=== PATIENT | male | born 1955 | race Caucasian/White ===

== ENCOUNTER 2020-10-19 23:57 | Inpatient (IN) | payer OTHER, MEDICARE ==
--- NOTE | 2020-10-20 00:33 | EDM.PDOC ---
ED HPI GENERAL MEDICAL PROBLEM - General Chief Complaint: Respiratory Problem Stated Complaint: COVID? Time Seen by Provider: 10/20/20 00:50 Source of Information: Reports: Patient, Family History Limitations: Reports: No Limitations - History of Present Illness INITIAL COMMENTS - FREE TEXT/NARRATIVE: 65-year-old male who has had symptoms of Covid for the past week and a half, seen in the clinic last week and a Covid test was obtained and he was started on dexamethasone. He feels he is getting worse, some increased difficulty breathing and worsening weakness. He can barely get up and down the stairs at home. When he arrived to the emergency room after ambulating to the exam room his O2 sats were 87%. He has had nausea, diarrhea, lost his taste of sense and smell. The Covid test that they obtained in the clinic apparently has been misplaced or lost. Onset: Gradual Duration: Day(s): (Symptoms for 10 days or more) Location: Reports: Other (Weakness is generalized) Associated Symptoms: Reports: Cough, Fever/Chills, Malaise, Nausea/Vomiting, Shortness of Breath, Weakness - Related Data Allergies Allergy/AdvReac Type Severity Reaction Status Date / Time Iodinated Contrast Media Allergy Severe Paralysis Verified 10/20/20 00:37 [Iodinated Contrast- Oral and IV Dye] codeine Allergy Itching Verified 10/20/20 00:37 morphine Allergy Other Verified 10/20/20 00:37 oxycodone Allergy Other Verified 10/20/20 00:37 simvastatin Allergy Itching Verified 10/20/20 00:37 Home Meds: Home Meds Aspirin [Jaja Chewable Aspirin] 81 mg PO DAILY 03/10/15 [History] Cyclobenzaprine HCl 10 mg PO TID PRN 03/10/15 [History] Gabapentin [Neurontin] 300 mg PO TID 03/10/15 [History] Loratadine 10 mg PO DAILY PRN 03/10/15 [History] Multivitamin [Multiple Vitamins] 1 tab PO BID 03/10/15 [History] atorvaSTATin Calcium [Atorvastatin Calcium] 20 mg PO DAILY 03/10/15 [History] rOPINIRole [Requip] 1 mg PO BEDTIME 03/10/15 [History] Naproxen 500 mg PO TID 06/19/17 [History] atenoloL [Atenolol] 50 mg PO DAILY 10/20/20 [History] dexAMETHasone [Dexamethasone] 1.5 tab PO DAILY 10/20/20 [History] Past Medical History HEENT History: Reports: Impaired Vision Psychiatric History: Reports: Depression - Infectious Disease History Infectious Disease History: Reports: Chicken Pox - Past Surgical History GI Surgical History: Reports: Colonoscopy Musculoskeletal Surgical History: Reports: Other (See Below) Other Musculoskeletal Surgeries/Procedures:: 4 spacers in loere spine.- Social & Family History - Family History Family Medical History: No Pertinent Family History - Tobacco Use Tobacco Use Status *Q: Never Tobacco User - Caffeine Use Caffeine Use: Reports: Coffee - Recreational Drug Use Recreational Drug Use: No ED ROS GENERAL - Review of Systems Review Of Systems: See Below Constitutional: Reports: Fever, Chills, Malaise, Decreased Appetite HEENT: Denies: Throat Pain Respiratory: Reports: Shortness of Breath, Cough. Denies: Sputum Cardiovascular: Denies: Chest Pain GI/Abdominal: Reports: Diarrhea, Nausea, Vomiting. Denies: Abdominal Pain : Reports: No Symptoms Musculoskeletal: Reports: Other (Generalized aching and muscle pain) Skin: Reports: No Symptoms Neurological: Reports: Dizziness, Headache, Difficulty Walking, Weakness Psychiatric: Reports: No Symptoms ED EXAM, GENERAL - Physical Exam Exam: See Below Exam Limited By: No Limitations General Appearance: Alert, No Apparent Distress, Other (Looks extremely tired) Eye Exam: Bilateral Eye: Normal Inspection Head: Atraumatic Neck: Supple, Non-Tender Respiratory/Chest: Rales (Bibasilar rales are heard) Cardiovascular: Regular Rate, Rhythm, Tachycardia GI/Abdominal: Soft, Non-Tender Extremities: No: Pedal Edema, Joint Swelling Neurological: Alert, Oriented, Other (No asymmetric weakness, but overall very weak) Psychiatric: Flat Affect Skin Exam: Warm, Dry Course - Vital Signs Last Recorded V/S: Last Vital Signs Temp 100.3 F 10/20/20 03:56 Pulse 94 10/20/20 03:56 Resp 18 10/20/20 03:56 BP 131/72 10/20/20 03:56 Pulse Ox 96 10/20/20 03:58 - Orders/Labs/Meds Orders: Active Orders 24 hr Category Date Time Status Chest 2V [CR] Routine Exams 10/20/20 00:55 Taken Medication Orders Acetaminophen (Tylenol) 650 mg PO Q4H PRN PRN Reason: Pain (Mild 1-3)/fever Aspirin (Aspirin) 81 mg PO DAILY [facility] Atorvastatin Calcium (Lipitor) 20 mg PO DAILY [facility] Benzonatate (Tessalon Perles) 100 mg PO TID PRN PRN Reason: Cough Cyclobenzaprine HCl (Flexeril) 10 mg PO TID PRN PRN Reason: Muscle Spasm Dexamethasone (Dexamethasone) 6 mg PO DAILY [facility] Enoxaparin Sodium (Lovenox) 40 mg SUBCUT DAILY [facility] Gabapentin (Neurontin) 300 mg PO TID [facility] Guaifenesin/Dextromethorphan (Robitussin Dm) 10 ml PO Q4H PRN PRN Reason: Cough Remdesivir 100 mg/ Sodium (Chloride) 100 mls @ 100 mls/hr IV Q24H [facility] Stop: 10/24/20 04:59 Loperamide HCl (Imodium) 2 mg PO Q4H PRN PRN Reason: Diarrhea Lorazepam (Ativan) 0.5 mg IVPUSH Q4H PRN PRN Reason: Nausea/Vomiting Melatonin (Melatonin) 9 mg PO BEDTIME PRN PRN Reason: Sleep Non-Formulary Medication (Atenolol [Atenolol]) 50 mg PO DAILY [facility] Ondansetron HCl (Zofran) 4 mg IV Q6H PRN PRN Reason: Nausea/Vomiting Ondansetron HCl (Zofran Odt) 4 mg PO Q6H PRN PRN Reason: Nausea able to take PO Ropinirole HCl (Requip) 1 mg PO BEDTIME [facility] Senna/Docusate Sodium (Senna Plus) 1 tab PO BID PRN PRN Reason: Constipation Labs: Laboratory Tests 10/20/20 10/20/20 10/20/20 Range/Units 01:20 01:20 01:20 WBC 12.9 H (4.5-11.0) K/uL RBC 5.02 (4.30-5.90) M/uL Hgb 13.9 (12.0-15.0) g/dL Hct 43.9 (40.0-54.0) % MCV 88 (80-98) fL MCH 28 (27-31) pg MCHC 32 (32-36) % Plt Count 230 (150-400) K/uL Neut % (Auto) 92 H (36-66) % Lymph % (Auto) 4 L (24-44) % Stokes % (Auto) 4 (2-6) % Eos % (Auto) 0 L (2-4) % Baso % (Auto) 0 (0-1) % D-Dimer, Quantitative 902.76 H (0.0-500.0) ng/mL Sodium 137 L (140-148) mmol/L Potassium 3.8 (3.6-5.2) mmol/L Chloride 100 (100-108) mmol/L Carbon Dioxide 25 (21-32) mmol/L Anion Gap 15.8 H (5.0-14.0) mmol/L BUN 27 H (7-18) mg/dL Creatinine 1.6 H (0.8-1.3) mg/dL Est Cr Clr Drug Dosing 55.76 mL/min Estimated GFR (MDRD) 43 L (>60) Glucose 138 H (74-106) mg/dL Calcium 9.0 (8.5-10.1) mg/dL Ferritin (8-388) ng/ml Total Bilirubin 0.4 (0.2-1.0) mg/dL AST 26 (15-37) U/L ALT 25 (12-78) U/L Alkaline Phosphatase 71 (46-116) U/L C-Reactive Protein (0.0-0.3) mg/dL Total Protein 7.1 (6.4-8.2) g/dL Albumin 3.0 L (3.4-5.0) g/dL Globulin 4.1 H (2.3-3.5) g/dL Albumin/Globulin Ratio 0.7 L (1.2-2.2) SARS-CoV-2 RNA (PRETTY) (NEGATIVE) 10/20/20 10/20/20 Range/Units 01:20 01:21 WBC (4.5-11.0) K/uL RBC (4.30-5.90) M/uL Hgb (12.0-15.0) g/dL Hct (40.0-54.0) % MCV (80-98) fL MCH (27-31) pg MCHC (32-36) % Plt Count (150-400) K/uL Neut % (Auto) (36-66) % Lymph % (Auto) (24-44) % Stokes % (Auto) (2-6) % Eos % (Auto) (2-4) % Baso % (Auto) (0-1) % D-Dimer, Quantitative (0.0-500.0) ng/mL Sodium (140-148) mmol/L Potassium (3.6-5.2) mmol/L Chloride (100-108) mmol/L Carbon Dioxide (21-32) mmol/L Anion Gap (5.0-14.0) mmol/L BUN (7-18) mg/dL Creatinine (0.8-1.3) mg/dL Est Cr Clr Drug Dosing mL/min Estimated GFR (MDRD) (>60) Glucose (74-106) mg/dL Calcium (8.5-10.1) mg/dL Ferritin 373 (8-388) ng/ml Total Bilirubin (0.2-1.0) mg/dL AST (15-37) U/L ALT (12-78) U/L Alkaline Phosphatase (46-116) U/L C-Reactive Protein 10.87 H (0.0-0.3) mg/dL Total Protein (6.4-8.2) g/dL Albumin (3.4-5.0) g/dL Globulin (2.3-3.5) g/dL Albumin/Globulin Ratio (1.2-2.2) SARS-CoV-2 RNA (PRETTY) Positive H (NEGATIVE) Meds: Medications Generic Name Dose Route Start Last Admin Trade Name Freq PRN Reason Stop Dose Admin Acetaminophen 650 mg 10/20/20 03:35 Tylenol PO Q4H PRN Pain (Mild 1-3)/fever Aspirin 81 mg 10/20/20 09:00 Aspirin PO DAILY [facility] Atorvastatin Calcium 20 mg 10/20/20 09:00 Lipitor PO DAILY [facility] Benzonatate 100 mg 10/20/20 03:35 Tessalon Perles PO TID PRN Cough Cyclobenzaprine HCl 10 mg 10/20/20 03:35 Flexeril PO TID PRN Muscle Spasm Dexamethasone 6 mg 10/20/20 09:00 Dexamethasone PO DAILY [facility] Enoxaparin Sodium 40 mg 10/20/20 09:00 Lovenox SUBCUT DAILY [facility] Gabapentin 300 mg 10/20/20 09:00 Neurontin PO TID [facility] Guaifenesin/Dextromethorphan 10 ml 10/20/20 03:35 Robitussin Dm PO Q4H PRN Cough Remdesivir 100 mg/ Sodium 100 mls @ 100 mls/hr 10/21/20 04:00 Chloride IV 10/24/20 04:59 Q24H [facility] Loperamide HCl 2 mg 10/20/20 03:35 Imodium PO Q4H PRN Diarrhea Lorazepam 0.5 mg 10/20/20 03:35 Ativan IVPUSH Q4H PRN Nausea/Vomiting Melatonin 9 mg 10/20/20 03:35 Melatonin PO BEDTIME PRN Sleep Non-Formulary Medication 50 mg 10/20/20 09:00 Atenolol [Atenolol] PO DAILY [facility] Ondansetron HCl 4 mg 10/20/20 03:35 Zofran IV Q6H PRN Nausea/Vomiting Ondansetron HCl 4 mg 10/20/20 03:35 Zofran Odt PO Q6H PRN Nausea able to take PO Ropinirole HCl 1 mg 10/20/20 21:00 Requip PO BEDTIME [facility] Senna/Docusate Sodium 1 tab 10/20/20 03:35 Senna Plus PO BID PRN Constipation Discontinued Medications Generic Name Dose Route Start Last Admin Trade Name Freq PRN Reason Stop Dose Admin Remdesivir 200 mg/ Sodium 250 mls @ 250 mls/hr 10/20/20 02:11 10/20/20 02:37 Chloride IV 10/20/20 02:12 250 mls/hr ONETIME ONE Administration - Re-Assessments/Exams Free Text/Narrative Re-Assessment/Exam: 10/20/20 01:19 2 L of nasal cannula O2 were applied because of his hypoxia. A two-view chest x-ray was obtained as well as a CBC, CMP, ferritin, D-dimer and CRP. A rapid Covid test was obtained. There is a fairly good chance this patient will need admission. 10/20/20 02:36 White count is just over 12,000, CRP is over 10 and Covid test is positive. Patient will be given 200 mg of IV remdesivir, Dr. Schuyler Crow was called and he instructed us to call the hospitalist service. Dr. Garcia was kind enough to accept the patient and will come in for admission. Departure - Departure Time of Disposition: 03:33 Disposition: Admitted As Inpatient 65 Clinical Impression: Pneumonia due to 2019 novel coronavirus - Discharge Information Sepsis Event Note (ED) - Evaluation Sepsis Screening Result: Possible Sepsis Risk - Focused Exam Vital Signs: Vital Signs Temp Pulse Resp BP Pulse Ox 10/20/20 00:15 99.5 F 107 H 26 H 123/71 92 L - My Orders Last 24 Hours: My Active Orders 10/20/20 00:55 Chest 2V [CR] Routine - Assessment/Plan Last 24 Hours: My Active Orders 10/20/20 00:55 Chest 2V [CR] Routine
[2020-10-20] MEDS ORDERED: REMDESIVIR 200 MG in Sodium Chloride 0.9% 250 ML IV ONE (02:11)
--- NOTE | 2020-10-20 03:16 | PCM.HP.2 ---
H&P History of Present Illness - General Date of Service: 10/20/20 Admit Problem/Dx: Admission Diagnosis/Problem Admission Diagnosis/Problem Pneumonia Source of Information: Patient, Provider History Limitations: Reports: No Limitations - History of Present Illness Initial Comments - Free Text/Narative: CC: I've been getting worse HPI: Abhinav presents to the emergency room tonight with progressive symptoms of cough, shortness of breath, weakness, fatigue and diarrhea. Today is day 9 of symptoms related to COVID-19 infection. He has lost his taste and smell. He has had nausea but no vomiting as well as fairly consistent watery diarrhea. He has some mild generalized abdominal pain which is crampy in nature. He has had progressive shortness of breath especially over the last few days. He is now short of breath after walking only 10 feet or so. He has a dry and nonproductive cough. Subjective fevers and chills. No appetite or energy. He was seen in the clinic 3 days ago and started on dexamethasone. He has continued to get worse despite the anti-inflammatory. His is also sick but got sick several days after he did. Work-up in the emergency room revealed acute respiratory failure with hypoxia. Laboratory studies revealed mild leukocytosis and moderate elevation of D-dimer and CRP. Chest x-ray had some mild right-sided infiltrates all consistent with Covid infection. The patient is hypoxic and has been started on the remdesivir in addition to his steroids. He is going to be admitted to the Covid unit for further management. - Related Data Allergies/Adverse Reactions: Allergies Allergy/AdvReac Type Severity Reaction Status Date / Time Iodinated Contrast Media Allergy Severe Paralysis Verified 10/20/20 00:37 [Iodinated Contrast- Oral and IV Dye] codeine Allergy Itching Verified 10/20/20 00:37 morphine Allergy Other Verified 10/20/20 00:37 oxycodone Allergy Other Verified 10/20/20 00:37 simvastatin Allergy Itching Verified 10/20/20 00:37 Home Medications: Home Meds Aspirin [Jaja Chewable Aspirin] 81 mg PO DAILY 03/10/15 [History] Cyclobenzaprine HCl 10 mg PO TID PRN 03/10/15 [History] Gabapentin [Neurontin] 300 mg PO TID 03/10/15 [History] Loratadine 10 mg PO DAILY PRN 03/10/15 [History] Multivitamin [Multiple Vitamins] 1 tab PO BID 03/10/15 [History] atorvaSTATin Calcium [Atorvastatin Calcium] 20 mg PO DAILY 03/10/15 [History] rOPINIRole [Requip] 1 mg PO BEDTIME 03/10/15 [History] Naproxen 500 mg PO TID 06/19/17 [History] atenoloL [Atenolol] 50 mg PO DAILY 10/20/20 [History] dexAMETHasone [Dexamethasone] 1.5 tab PO DAILY 10/20/20 [History] Past Medical History HEENT History: Reports: Impaired Vision Psychiatric History: Reports: Depression - Infectious Disease History Infectious Disease History: Reports: Chicken Pox - Past Surgical History GI Surgical History: Reports: Colonoscopy Musculoskeletal Surgical History: Reports: Other (See Below) Other Musculoskeletal Surgeries/Procedures:: 4 spacers in loere spine.- Social & Family History - Family History Family Medical History: No Pertinent Family History - Tobacco Use Tobacco Use Status *Q: Never Tobacco User - Caffeine Use Caffeine Use: Reports: Coffee - Recreational Drug Use Recreational Drug Use: No H&P Review of Systems - Review of Systems: Review Of Systems: See Below Free Text/Narrative: A complete 12 point review of systems was obtained. Pertinent positives and negatives are noted in the history of present illness. All other systems were reviewed and were negative except as noted. Exam - Exam Exam: See Below - Vital Signs Vital Signs: Last Vital Signs Temp 37.5 C 10/20/20 00:15 Pulse 107 H 10/20/20 00:15 Resp 26 H 10/20/20 00:15 BP 123/71 10/20/20 00:15 Pulse Ox 92 L 10/20/20 00:15 Weight: 110.2 kg - Exam Quality Assessment: Supplemental Oxygen General: Alert, Oriented, Cooperative, Mild Distress HEENT: Conjunctiva Clear. No: Mucosa Moist & [place] (dry), Scleral Icterus Neck: Supple, Trachea Midline Lungs: Normal Respiratory Effort, Crackles (Rare right lung base). No: Wheezing Cardiovascular: Regular Rate, Regular Rhythm GI/Abdominal Exam: Normal Bowel Sounds, Soft, No Distention, Tender (Mild epigastric and left-sided) Extremities: No Pedal Edema. No: Increased Warmth Peripheral Pulses: 2+: Dorsalis Pedis (L), Dorsalis Pedis (R) Skin: Warm, Dry Neuro Extensive - Mental Status: Alert, Oriented x3, Nl Response to Commands Neuro Extensive - Motor, Sensory, Reflexes: Tremor (Mild generalized tremor). No: Dysarthria, Abnormal Motor Psychiatric: Alert, Normal Affect - Patient Data Lab Results Last 24 hrs: Laboratory Results - last 24 hr 10/20/20 10/20/20 10/20/20 Range/Units 01:20 01:20 01:20 WBC 12.9 H (4.5-11.0) K/uL RBC 5.02 (4.30-5.90) M/uL Hgb 13.9 (12.0-15.0) g/dL Hct 43.9 (40.0-54.0) % MCV 88 (80-98) fL MCH 28 (27-31) pg MCHC 32 (32-36) % Plt Count 230 (150-400) K/uL Neut % (Auto) 92 H (36-66) % Lymph % (Auto) 4 L (24-44) % Bibb % (Auto) 4 (2-6) % Eos % (Auto) 0 L (2-4) % Baso % (Auto) 0 (0-1) % D-Dimer, Quantitative 902.76 H (0.0-500.0) ng/mL Sodium 137 L (140-148) mmol/L Potassium 3.8 (3.6-5.2) mmol/L Chloride 100 (100-108) mmol/L Carbon Dioxide 25 (21-32) mmol/L Anion Gap 15.8 H (5.0-14.0) mmol/L BUN 27 H (7-18) mg/dL Creatinine 1.6 H (0.8-1.3) mg/dL Est Cr Clr Drug Dosing 55.76 mL/min Estimated GFR (MDRD) 43 L (>60) Glucose 138 H (74-106) mg/dL Calcium 9.0 (8.5-10.1) mg/dL Ferritin (8-388) ng/ml Total Bilirubin 0.4 (0.2-1.0) mg/dL AST 26 (15-37) U/L ALT 25 (12-78) U/L Alkaline Phosphatase 71 (46-116) U/L C-Reactive Protein (0.0-0.3) mg/dL Total Protein 7.1 (6.4-8.2) g/dL Albumin 3.0 L (3.4-5.0) g/dL Globulin 4.1 H (2.3-3.5) g/dL Albumin/Globulin Ratio 0.7 L (1.2-2.2) SARS-CoV-2 RNA (PRETTY) (NEGATIVE) 10/20/20 10/20/20 Range/Units 01:20 01:21 WBC (4.5-11.0) K/uL RBC (4.30-5.90) M/uL Hgb (12.0-15.0) g/dL Hct (40.0-54.0) % MCV (80-98) fL MCH (27-31) pg MCHC (32-36) % Plt Count (150-400) K/uL Neut % (Auto) (36-66) % Lymph % (Auto) (24-44) % Bibb % (Auto) (2-6) % Eos % (Auto) (2-4) % Baso % (Auto) (0-1) % D-Dimer, Quantitative (0.0-500.0) ng/mL Sodium (140-148) mmol/L Potassium (3.6-5.2) mmol/L Chloride (100-108) mmol/L Carbon Dioxide (21-32) mmol/L Anion Gap (5.0-14.0) mmol/L BUN (7-18) mg/dL Creatinine (0.8-1.3) mg/dL Est Cr Clr Drug Dosing mL/min Estimated GFR (MDRD) (>60) Glucose (74-106) mg/dL Calcium (8.5-10.1) mg/dL Ferritin 373 (8-388) ng/ml Total Bilirubin (0.2-1.0) mg/dL AST (15-37) U/L ALT (12-78) U/L Alkaline Phosphatase (46-116) U/L C-Reactive Protein 10.87 H (0.0-0.3) mg/dL Total Protein (6.4-8.2) g/dL Albumin (3.4-5.0) g/dL Globulin (2.3-3.5) g/dL Albumin/Globulin Ratio (1.2-2.2) SARS-CoV-2 RNA (PRETTY) Positive H (NEGATIVE) Result Diagrams: 10/20/20 01:20 10/20/20 01:20 Imaging Impressions Last 24 hrs: Chest x-ray-image personally reviewed-there are subtle bilateral changes, more on the right than on the left with patchy and especially bibasilar densities. No large infiltrate noted. No mass or effusion. Heart size is normal. Sepsis Event Note - Evaluation Sepsis Screening Result: Possible Sepsis Risk - Focused Exam Vital Signs: Vital Signs Temp Pulse Resp BP Pulse Ox 10/20/20 00:15 37.5 C 107 H 26 H 123/71 92 L *Q Meaningful Use (ADM) - VTE Risk Assess *Q Each Risk Factor Represents 1 Point: Obesity ( BMI > 25 kg/m2), Serious lung disease including pneumonia Total Score 1 Point Risk Factors: 2 Each Risk Factor Represents 2 Points: Age 60 - 74 Years Total Score 2 Point Risk Factors: 2 Each Risk Factor Represents 3 Points: None Total Score 3 Point Risk Factors: 0 Each Risk Factor Represents 5 Points: None Total Score 5 Point Risk Factors: 0 Venous Thromboembolism Risk Factor Score *Q: 4 - Problem List (1) Pneumonia due to 2019 novel coronavirus SNOMED Code(s): 505881504921701352 ICD Code: U07.1 - COVID-19; J12.89 - OTHER VIRAL PNEUMONIA Status: Acute Current Visit: Yes (2) Acute respiratory failure with hypoxia SNOMED Code(s): 97111739, 769652681 ICD Code: J96.01 - ACUTE RESPIRATORY FAILURE WITH HYPOXIA Status: Acute Current Visit: Yes (3) Acute kidney injury SNOMED Code(s): 93725204, 39135047 ICD Code: N17.9 - ACUTE KIDNEY FAILURE, UNSPECIFIED Status: Acute Current Visit: Yes Problem List Initiated/Reviewed/Updated: Yes Orders Last 24hrs: Active Orders 24 hr Category Date Time Status Patient Status Manage Transfer [TRANSFER] Routine ADT 10/20/20 03:06 Ordered Chest 2V [CR] Routine Exams 10/20/20 00:55 Taken Resuscitation Status Routine Resus Stat 10/20/20 03:08 Ordered Assessment/Plan Comment:: ASSESSMENT AND PLAN - Pneumonia due to COVID-19 infection-short of breath with any exertion and now complicated by acute respiratory failure with hypoxia. Not needing much oxygen but still has some tachypnea. D-dimer moderately elevated and CRP is more significantly elevated. Blood pressure and heart rate are stable at this time. Worsening despite outpatient steroids and not safe for outpatient management. We did review the potential risks and benefits of treatment modalities for COVID-19 including steroids, convalescent plasma and remdesivir. He is aware that the remdesivir is aware on an emergency use authorization. He is interested in receiving all 3 of these treatment modalities. -Supplement oxygen -Continue dexamethasone 6 mg daily (day 4, started on 10/17 as outpatient) -Convalescent plasma daily x3 days -Remdesivir x5 days (day 1) -Symptomatic management of cough and diarrhea -Isolation Acute kidney injury-probably secondary to poor intake and I would anticipate this will improve as the Covid infection improves. -No additional IV fluids -P.o. intake Maintenance issues - - DVT prophylaxis -enoxaparin - GI prophylaxis -not indicated - Nutrition -regular - Maldonado catheter -not indicated CODE STATUS -full code Admission justification -this patient will be admitted for inpatient services and is medically appropriate meeting medical necessity for inpatient admission as outlined in my documentation. I reasonably expect the patient will require inpatient services that span a period time over 2 midnights. I reasonably expect this patient to be discharged or transferred within 96 hours after admission to the [facility]. Disposition -I would anticipate discharge home after the hospital stay Primary care physician -Dr. Schuyler Garcia M.D. - Mortality Measure Prognosis:: Good
[2020-10-20] MEDS ORDERED: Cyclobenzaprine 10 MG Tab PO PRN (03:35)
[2020-10-20] MEDS ORDERED: Benzonatate 100 MG Cap PO PRN (03:35)
[2020-10-20] MEDS ORDERED: Loperamide 2 MG Cap PO PRN (03:35)
[2020-10-20] MEDS ORDERED: Ondansetron 4 MG Tab.DIS PO PRN (03:35)
[2020-10-20] MEDS ORDERED: Ondansetron 4 MG/2 ML SDV IV PRN (03:35)
[2020-10-20] MEDS ORDERED: LORazepam 2 MG/ML SDV IVPUSH PRN (03:35)
[2020-10-20] MEDS ORDERED: guaiFENesin/Dextromethorphan 100-10 MG/5 ML Soln 10 ML Cup PO PRN (03:35)
[2020-10-20] MEDS ORDERED: Melatonin 3 MG Tab PO PRN (03:35)
[2020-10-20] MEDS: Acetaminophen 325 MG Tab PO PRN (04:13)
[2020-10-20] MEDS: Atenolol 25 MG Tab PO SCH (09:16)
[2020-10-20] MEDS: atorvaSTATin 20 MG Tab PO SCH (09:16)
[2020-10-20] MEDS: Aspirin 81 MG Tab.Chew PO SCH (09:16)
[2020-10-20] MEDS: Enoxaparin 40 MG/0.4 ML Syringe SUBCUT SCH (09:17)
[2020-10-20] MEDS: Dexamethasone 2 MG Tab PO SCH (09:17)
[2020-10-20] MEDS: Gabapentin 400 MG Cap PO SCH ×3 (09:17→20:43)
[2020-10-20] MEDS ORDERED: rOPINIRole 0.5 MG Tab PO SCH (21:00)
[2020-10-21] MEDS: REMDESIVIR 100 MG in Sodium Chloride 0.9% 100 ML IV SCH (03:51)
[2020-10-21] MEDS: Atenolol 25 MG Tab PO SCH (08:59)
[2020-10-21] MEDS: atorvaSTATin 20 MG Tab PO SCH (09:00)
[2020-10-21] MEDS: Aspirin 81 MG Tab.Chew PO SCH (09:00)
[2020-10-21] MEDS: Dexamethasone 2 MG Tab PO SCH (09:00)
[2020-10-21] MEDS: Enoxaparin 40 MG/0.4 ML Syringe SUBCUT SCH (09:00)
[2020-10-21] MEDS: Gabapentin 400 MG Cap PO SCH (09:01)
--- NOTE | 2020-10-21 09:02 | CR ---
CHEST: 2 view CLINICAL HISTORY:Dyspnea COMPARISON:None FINDINGS: There are patchy densities in both lung hopper most prominent in the left lower lobe and/or lingula. Heart size pulmonary vascularity are normal. IMPRESSION: Bilateral pneumonic infiltrates
[2020-10-21] MEDS: Gabapentin 300 MG Cap PO SCH ×2 (14:28→20:55)
--- NOTE | 2020-10-21 18:13 | PCM.PN ---
- General Info Date of Service: 10/21/20 Subjective Update: Mr. Buitrago has remained fairly stable since admission yesterday, continues to require about 3 to 4 L of oxygen via nasal cannula to maintain adequate oxygen saturations. Persistent symptoms of shortness of breath and cough. Denies significant fever or chills. Functional Status: Reports: Ambulating, Urinating. Denies: Tolerating Diet - Review of Systems General: Reports: Weakness, Fatigue. Denies: Fever, Chills Pulmonary: Reports: Shortness of Breath, Cough. Denies: Pleuritic Chest Pain, Sputum, Hemoptysis, Wheezing Cardiovascular: Reports: Dyspnea on Exertion. Denies: Chest Pain, Palpitations, Orthopnea, PND, Edema, Lightheadedness Gastrointestinal: Reports: No Symptoms - Patient Data Vitals - Most Recent: Last Vital Signs Temp 97.4 F 10/21/20 15:06 Pulse 77 10/21/20 15:06 Resp 18 10/21/20 15:06 BP 126/65 10/21/20 15:06 Pulse Ox 92 L 10/21/20 15:06 Weight - Most Recent: 242 lb 15.19 oz I&O - Last 24 Hours: Intake & Output 10/21/20 10/21/20 10/21/20 06:59 14:59 22:59 Intake Total 100 499 825 Balance 100 499 825 Lab Results Last 24 Hours: Laboratory Results - last 24 hr 10/21/20 10/21/20 10/21/20 Range/Units 05:00 05:00 05:00 WBC 9.1 (4.5-11.0) K/uL RBC 4.58 (4.30-5.90) M/uL Hgb 12.8 (12.0-15.0) g/dL Hct 40.4 (40.0-54.0) % MCV 88 (80-98) fL MCH 28 (27-31) pg MCHC 32 (32-36) % Plt Count 214 (150-400) K/uL D-Dimer, Quantitative 731.74 H (0.0-500.0) ng/mL Sodium 139 L (140-148) mmol/L Potassium 4.0 (3.6-5.2) mmol/L Chloride 104 (100-108) mmol/L Carbon Dioxide 26 (21-32) mmol/L Anion Gap 13.0 (5.0-14.0) mmol/L BUN 25 H (7-18) mg/dL Creatinine 1.1 (0.8-1.3) mg/dL Est Cr Clr Drug Dosing 81.10 mL/min Estimated GFR (MDRD) > 60 (>60) Glucose 142 H (74-106) mg/dL Calcium 9.0 (8.5-10.1) mg/dL Total Bilirubin 0.2 (0.2-1.0) mg/dL AST 16 (15-37) U/L ALT 20 (12-78) U/L Alkaline Phosphatase 62 (46-116) U/L C-Reactive Protein 13.10 H (0.0-0.3) mg/dL Total Protein 6.4 (6.4-8.2) g/dL Albumin 2.5 L (3.4-5.0) g/dL Globulin 3.9 H (2.3-3.5) g/dL Albumin/Globulin Ratio 0.6 L (1.2-2.2) Med Orders - Current: Current Medications Acetaminophen (Tylenol) 650 mg PO Q4H PRN PRN Reason: Pain (Mild 1-3)/fever Last Admin: 10/20/20 04:13 Dose: 650 mg Documented by: Aspirin (Aspirin) 81 mg PO DAILY [facility] Last Admin: 10/21/20 09:00 Dose: 81 mg Documented by: Atenolol (Tenormin) 50 mg PO DAILY [facility] Last Admin: 10/21/20 08:59 Dose: 50 mg Documented by: Atorvastatin Calcium (Lipitor) 20 mg PO DAILY [facility] Last Admin: 10/21/20 09:00 Dose: 20 mg Documented by: Benzonatate (Tessalon Perles) 100 mg PO TID PRN PRN Reason: Cough Cyclobenzaprine HCl (Flexeril) 10 mg PO TID PRN PRN Reason: Muscle Spasm Dexamethasone (Dexamethasone) 6 mg PO DAILY [facility] Last Admin: 10/21/20 09:00 Dose: 6 mg Documented by: Enoxaparin Sodium (Lovenox) 40 mg SUBCUT DAILY [facility] Last Admin: 10/21/20 09:00 Dose: 40 mg Documented by: Gabapentin (Neurontin) 300 mg PO TID [facility] Last Admin: 10/21/20 14:28 Dose: 300 mg Documented by: Guaifenesin/Dextromethorphan (Robitussin Dm) 10 ml PO Q4H PRN PRN Reason: Cough Remdesivir 100 mg/ Sodium (Chloride) 100 mls @ 100 mls/hr IV Q24H [facility] Stop: 10/24/20 04:59 Last Admin: 10/21/20 03:51 Dose: 100 mls/hr Documented by: Loperamide HCl (Imodium) 2 mg PO Q4H PRN PRN Reason: Diarrhea Last Admin: 10/20/20 09:29 Dose: 2 mg Documented by: Lorazepam (Ativan) 0.5 mg IVPUSH Q4H PRN PRN Reason: Nausea/Vomiting Melatonin (Melatonin) 9 mg PO BEDTIME PRN PRN Reason: Sleep Ondansetron HCl (Zofran) 4 mg IV Q6H PRN PRN Reason: Nausea/Vomiting Ondansetron HCl (Zofran Odt) 4 mg PO Q6H PRN PRN Reason: Nausea able to take PO Ropinirole HCl (Requip) 1 mg PO BEDTIME [facility] Senna/Docusate Sodium (Senna Plus) 1 tab PO BID PRN PRN Reason: Constipation Discontinued Medications Gabapentin (Neurontin) 300 mg PO TID [facility] Last Admin: 10/21/20 09:01 Dose: 300 mg Documented by: Remdesivir 200 mg/ Sodium (Chloride) 250 mls @ 250 mls/hr IV ONETIME ONE Stop: 10/20/20 02:12 Last Admin: 10/20/20 02:37 Dose: 250 mls/hr Documented by: Ropinirole HCl (Requip) 1 mg PO BEDTIME [facility] Last Admin: 10/20/20 20:43 Dose: 1 mg Documented by: - Exam Quality Assessment: Supplemental Oxygen, DVT Prophylaxis General: Alert, Oriented, Cooperative, Moderate Distress Lungs: Rales, Wheezing. No: Crackles, Rhonchi Cardiovascular: Regular Rate, Regular Rhythm, No Murmurs GI/Abdominal Exam: Soft, Non-Tender, No Organomegaly, No Distention Extremities: Non-Tender, No Pedal Edema Sepsis Event Note - Evaluation Sepsis Screening Result: No Definite Risk - Focused Exam Vital Signs: Vital Signs Temp Temp Pulse Pulse Resp BP BP 10/21/20 15:06 97.4 F 77 18 126/65 10/21/20 15:00 96.2 F L 79 18 137/67 10/21/20 14:31 96.7 F L 76 18 126/86 10/21/20 14:01 96.8 F L 77 18 135/65 10/21/20 13:37 97 F 77 18 150/74 H 10/21/20 12:28 10/21/20 10:56 98.2 F 75 18 111/55 L 10/21/20 08:59 82 123/69 10/21/20 07:00 96.7 F L 75 18 123/69 Pulse Ox 10/21/20 15:06 92 L 10/21/20 15:00 92 L 10/21/20 14:31 92 L 10/21/20 14:01 92 L 10/21/20 13:37 97 10/21/20 12:28 94 L 10/21/20 10:56 98 10/21/20 08:59 10/21/20 07:00 91 L - Problem List Review Problem List Initiated/Reviewed/Updated: Yes - My Orders Last 24 Hours: My Active Orders 10/22/20 05:00 CBC WITH AUTO DIFF [HEME] Timed COMPREHENSIVE METABOLIC PN,CMP [CHEM] Timed 10/22/20 05:11 CRP [C-REACTIVE PROTEIN] [CHEM] AM D Dimer [D-DIMER QUANTITATIVE] [COAG] AM - Plan Plan:: ASSESSMENT AND PLAN - Pneumonia due to COVID-19 infection-short of breath with any exertion and now complicated by acute respiratory failure with hypoxia. Respiratory status relatively stable since admission yesterday -Supplement oxygen -Continue dexamethasone 6 mg daily (day 5, started on 10/17 as outpatient) -Convalescent plasma daily x3 days, day 2 of 3 -Remdesivir x5 days (day 2 of 5) -Symptomatic management of cough and diarrhea -Isolation Acute kidney injury-renal function improved -Continue to closely monitor urine output and renal function Maintenance issues - - DVT prophylaxis -enoxaparin - GI prophylaxis -not indicated - Nutrition -regular - Maldonado catheter -not indicated CODE STATUS -full code Admission justification -this patient will be admitted for inpatient services an d is medically appropriate meeting medical necessity for inpatient admission as outlined in my documentation. I reasonably expect the patient will require inpatient services that span a period time over 2 midnights. I reasonably expect this patient to be discharged or transferred within 96 hours after admission to the [facility]. Disposition -I would anticipate discharge home after the hospital stay Primary care physician -Dr. Schuyler Crow
[2020-10-21] MEDS: rOPINIRole 1 MG Tab PO SCH (20:54)
[2020-10-22] MEDS: REMDESIVIR 100 MG in Sodium Chloride 0.9% 100 ML IV SCH (03:48)
[2020-10-22] MEDS: Acetaminophen 325 MG Tab PO PRN (07:38)
[2020-10-22] MEDS: Dexamethasone 2 MG Tab PO SCH (08:49)
[2020-10-22] MEDS: Gabapentin 300 MG Cap PO SCH ×3 (08:49→20:47)
[2020-10-22] MEDS: atorvaSTATin 20 MG Tab PO SCH (08:49)
[2020-10-22] MEDS: Atenolol 25 MG Tab PO SCH (08:50)
[2020-10-22] MEDS: Aspirin 81 MG Tab.Chew PO SCH (08:50)
[2020-10-22] MEDS: Enoxaparin 40 MG/0.4 ML Syringe SUBCUT SCH (08:50)
--- NOTE | 2020-10-22 13:46 | PCM.PN ---
- General Info Date of Service: 10/22/20 Subjective Update: Mr. Buitrago has shown good improvement in his respiratory status over the last 24 hours. He is requiring less supplemental oxygen compared to yesterday and feels less short of breath. Energy level and appetite do seem to be modestly improved. Functional Status: Reports: Tolerating Diet, Ambulating, Urinating - Review of Systems General: Reports: Weakness, Fatigue. Denies: Fever, Chills Pulmonary: Reports: Shortness of Breath, Cough, Sputum. Denies: Pleuritic Chest Pain, Hemoptysis, Wheezing Cardiovascular: Reports: Dyspnea on Exertion. Denies: Chest Pain, Palpitations, Orthopnea, PND, Edema, Lightheadedness Gastrointestinal: Reports: No Symptoms - Patient Data Vitals - Most Recent: Last Vital Signs Temp 95.9 F L 10/22/20 12:45 Pulse 63 10/22/20 12:45 Resp 18 10/22/20 12:45 BP 127/69 10/22/20 12:45 Pulse Ox 92 L 10/22/20 12:58 Weight - Most Recent: 242 lb 15.19 oz I&O - Last 24 Hours: Intake & Output 10/21/20 10/22/20 10/22/20 22:59 06:59 14:59 Intake Total 1305 700 Balance 1305 700 Lab Results Last 24 Hours: Laboratory Results - last 24 hr 10/22/20 10/22/20 10/22/20 Range/Units 06:20 06:20 06:20 WBC 9.2 (4.5-11.0) K/uL RBC 4.85 (4.30-5.90) M/uL Hgb 13.5 (12.0-15.0) g/dL Hct 42.6 (40.0-54.0) % MCV 88 (80-98) fL MCH 28 (27-31) pg MCHC 32 (32-36) % Plt Count 283 (150-400) K/uL Neut % (Auto) 82 H (36-66) % Lymph % (Auto) 7 L (24-44) % [place] % (Auto) 6 (2-6) % Eos % (Auto) 5 H (2-4) % Baso % (Auto) 0 (0-1) % D-Dimer, Quantitative 588.98 H (0.0-500.0) ng/mL Sodium 141 (140-148) mmol/L Potassium 4.1 (3.6-5.2) mmol/L Chloride 105 (100-108) mmol/L Carbon Dioxide 28 (21-32) mmol/L Anion Gap 7.7 (5.0-14.0) mmol/L BUN 26 H (7-18) mg/dL Creatinine 1.1 (0.8-1.3) mg/dL Est Cr Clr Drug Dosing 81.07 mL/min Estimated GFR (MDRD) > 60 (>60) Glucose 130 H (74-106) mg/dL Calcium 9.1 (8.5-10.1) mg/dL Total Bilirubin 0.3 (0.2-1.0) mg/dL AST 15 (15-37) U/L ALT 22 (12-78) U/L Alkaline Phosphatase 65 (46-116) U/L C-Reactive Protein (0.0-0.3) mg/dL Total Protein 6.6 (6.4-8.2) g/dL Albumin 2.5 L (3.4-5.0) g/dL Globulin 4.1 H (2.3-3.5) g/dL Albumin/Globulin Ratio 0.6 L (1.2-2.2) 10/22/20 Range/Units 06:20 WBC (4.5-11.0) K/uL RBC (4.30-5.90) M/uL Hgb (12.0-15.0) g/dL Hct (40.0-54.0) % MCV (80-98) fL MCH (27-31) pg MCHC (32-36) % Plt Count (150-400) K/uL Neut % (Auto) (36-66) % Lymph % (Auto) (24-44) % [place] % (Auto) (2-6) % Eos % (Auto) (2-4) % Baso % (Auto) (0-1) % D-Dimer, Quantitative (0.0-500.0) ng/mL Sodium (140-148) mmol/L Potassium (3.6-5.2) mmol/L Chloride (100-108) mmol/L Carbon Dioxide (21-32) mmol/L Anion Gap (5.0-14.0) mmol/L BUN (7-18) mg/dL Creatinine (0.8-1.3) mg/dL Est Cr Clr Drug Dosing mL/min Estimated GFR (MDRD) (>60) Glucose (74-106) mg/dL Calcium (8.5-10.1) mg/dL Total Bilirubin (0.2-1.0) mg/dL AST (15-37) U/L ALT (12-78) U/L Alkaline Phosphatase (46-116) U/L C-Reactive Protein 6.55 H (0.0-0.3) mg/dL Total Protein (6.4-8.2) g/dL Albumin (3.4-5.0) g/dL Globulin (2.3-3.5) g/dL Albumin/Globulin Ratio (1.2-2.2) Med Orders - Current: Current Medications Acetaminophen (Tylenol) 650 mg PO Q4H PRN PRN Reason: Pain (Mild 1-3)/fever Last Admin: 10/22/20 07:38 Dose: 650 mg Documented by: Aspirin (Aspirin) 81 mg PO DAILY [facility] Last Admin: 10/22/20 08:50 Dose: 81 mg Documented by: Atenolol (Tenormin) 50 mg PO DAILY [facility] Last Admin: 10/22/20 08:50 Dose: 50 mg Documented by: Atorvastatin Calcium (Lipitor) 20 mg PO DAILY [facility] Last Admin: 10/22/20 08:49 Dose: 20 mg Documented by: Benzonatate (Tessalon Perles) 100 mg PO TID PRN PRN Reason: Cough Cyclobenzaprine HCl (Flexeril) 10 mg PO TID PRN PRN Reason: Muscle Spasm Dexamethasone (Dexamethasone) 6 mg PO DAILY [facility] Last Admin: 10/22/20 08:49 Dose: 6 mg Documented by: Enoxaparin Sodium (Lovenox) 40 mg SUBCUT DAILY [facility] Last Admin: 10/22/20 08:50 Dose: 40 mg Documented by: Gabapentin (Neurontin) 300 mg PO TID [facility] Last Admin: 10/22/20 13:32 Dose: 300 mg Documented by: Guaifenesin/Dextromethorphan (Robitussin Dm) 10 ml PO Q4H PRN PRN Reason: Cough Remdesivir 100 mg/ Sodium (Chloride) 100 mls @ 100 mls/hr IV Q24H [facility] Stop: 10/24/20 04:59 Last Admin: 10/22/20 03:48 Dose: 100 mls/hr Documented by: Loperamide HCl (Imodium) 2 mg PO Q4H PRN PRN Reason: Diarrhea Last Admin: 10/20/20 09:29 Dose: 2 mg Documented by: Lorazepam (Ativan) 0.5 mg IVPUSH Q4H PRN PRN Reason: Nausea/Vomiting Melatonin (Melatonin) 9 mg PO BEDTIME PRN PRN Reason: Sleep Ondansetron HCl (Zofran) 4 mg IV Q6H PRN PRN Reason: Nausea/Vomiting Ondansetron HCl (Zofran Odt) 4 mg PO Q6H PRN PRN Reason: Nausea able to take PO Ropinirole HCl (Requip) 1 mg PO BEDTIME [facility] Last Admin: 10/21/20 20:54 Dose: 1 mg Documented by: Senna/Docusate Sodium (Senna Plus) 1 tab PO BID PRN PRN Reason: Constipation Discontinued Medications Gabapentin (Neurontin) 300 mg PO TID [facility] Last Admin: 10/21/20 09:01 Dose: 300 mg Documented by: Remdesivir 200 mg/ Sodium (Chloride) 250 mls @ 250 mls/hr IV ONETIME ONE Stop: 10/20/20 02:12 Last Admin: 10/20/20 02:37 Dose: 250 mls/hr Documented by: Ropinirole HCl (Requip) 1 mg PO BEDTIME [facility] Last Admin: 10/20/20 20:43 Dose: 1 mg Documented by: - Exam Quality Assessment: Supplemental Oxygen, DVT Prophylaxis General: Alert, Oriented, Cooperative, Moderate Distress Lungs: Clear to Auscultation, Normal Respiratory Effort Cardiovascular: Regular Rate, Regular Rhythm, No Murmurs GI/Abdominal Exam: Soft, Non-Tender, No Organomegaly, No Distention Extremities: Non-Tender, No Pedal Edema Sepsis Event Note - Evaluation Sepsis Screening Result: No Definite Risk - Focused Exam Vital Signs: Vital Signs Temp Temp Pulse Pulse Resp BP BP 10/22/20 12:58 10/22/20 12:45 95.9 F L 63 18 127/69 10/22/20 12:00 95.8 F L 60 16 119/61 10/22/20 11:45 95.8 F L 61 16 119/62 10/22/20 11:32 95.7 F L 70 18 127/63 10/22/20 08:50 61 133/65 10/22/20 07:23 10/22/20 07:00 97.1 F 61 16 133/65 10/22/20 03:46 97.4 F 71 18 137/75 Pulse Ox 10/22/20 12:58 92 L 10/22/20 12:45 92 L 10/22/20 12:00 91 L 10/22/20 11:45 91 L 10/22/20 11:32 95 10/22/20 08:50 10/22/20 07:23 90 L 10/22/20 07:00 92 L 10/22/20 03:46 92 L - Problem List Review Problem List Initiated/Reviewed/Updated: Yes - My Orders Last 24 Hours: My Active Orders 10/23/20 05:00 CBC WITH AUTO DIFF [HEME] Timed COMPREHENSIVE METABOLIC PN,CMP [CHEM] Timed 10/23/20 05:11 CRP [C-REACTIVE PROTEIN] [CHEM] AM D Dimer [D-DIMER QUANTITATIVE] [COAG] AM - Plan Plan:: ASSESSMENT AND PLAN Pneumonia due to COVID-19 infection-proved over the last 24 hours requiring less supplemental oxygen, improved energy level and appetite -Supplement oxygen -Continue dexamethasone 6 mg daily (day 6, started on 10/17 as outpatient) -Convalescent plasma daily x3 days, day 3 of 3 -Remdesivir x5 days (day 3 of 5) -Symptomatic management of cough and diarrhea -Isolation Acute kidney injury-renal function improved -Continue to closely monitor urine output and renal function Maintenance issues - - DVT prophylaxis -enoxaparin - GI prophylaxis -not indicated - Nutrition -regular - Maldonado catheter -not indicated CODE STATUS -full code Admission justification -this patient will be admitted for inpatient services and is medically appropriate meeting medical necessity for inpatient admission as outlined in my documentation. I reasonably expect the patient will require inpatient services that span a period time over 2 midnights. I reasonably expect this patient to be discharged or transferred within 96 hours after admission to the Critical [facility]. Disposition -I would anticipate discharge home after the hospital stay Primary care physician -Dr. Schuyler Crow
[2020-10-22] MEDS: rOPINIRole 1 MG Tab PO SCH (20:47)
[2020-10-23] MEDS: REMDESIVIR 100 MG in Sodium Chloride 0.9% 100 ML IV SCH (03:21)
[2020-10-23] MEDS: Atenolol 25 MG Tab PO SCH (09:27)
[2020-10-23] MEDS: Gabapentin 300 MG Cap PO SCH ×3 (09:28→20:07)
[2020-10-23] MEDS: Enoxaparin 40 MG/0.4 ML Syringe SUBCUT SCH (09:28)
[2020-10-23] MEDS: Aspirin 81 MG Tab.Chew PO SCH (09:28)
[2020-10-23] MEDS: Dexamethasone 2 MG Tab PO SCH (09:28)
[2020-10-23] MEDS: atorvaSTATin 20 MG Tab PO SCH (09:28)
--- NOTE | 2020-10-23 11:50 | PCM.PN ---
- General Info Date of Service: 10/23/20 Subjective Update: Mr. Buitrago has experienced further improvement over the last 24 hours. He is now down to 1 L/min of oxygen via nasal cannula. He has been able to be more active, including walks in the hallways. Appetite has improved and he notes shortness of breath only with activity. Functional Status: Reports: Tolerating Diet, Ambulating, Urinating - Review of Systems General: Reports: Weakness, Fatigue. Denies: Fever, Chills Pulmonary: Reports: Shortness of Breath. Denies: Pleuritic Chest Pain, Cough, Sputum, Hemoptysis, Wheezing Cardiovascular: Reports: Dyspnea on Exertion. Denies: Chest Pain, Palpitations, Orthopnea, PND, Edema, Lightheadedness Gastrointestinal: Reports: No Symptoms - Patient Data Vitals - Most Recent: Last Vital Signs Temp 97.7 F 10/23/20 11:00 Pulse 69 10/23/20 11:00 Resp 16 10/23/20 11:00 BP 111/56 L 10/23/20 11:00 Pulse Ox 95 10/23/20 11:00 Weight - Most Recent: 242 lb 15.19 oz I&O - Last 24 Hours: Intake & Output 10/22/20 10/23/20 10/23/20 22:59 06:59 14:59 Intake Total 800 480 Output Total 300 Balance 500 480 Lab Results Last 24 Hours: Laboratory Results - last 24 hr 10/23/20 10/23/20 10/23/20 Range/Units 03:44 03:44 03:44 WBC 12.5 H (4.5-11.0) K/uL RBC 4.70 (4.30-5.90) M/uL Hgb 13.4 (12.0-15.0) g/dL Hct 41.2 (40.0-54.0) % MCV 88 (80-98) fL MCH 29 (27-31) pg MCHC 33 (32-36) % Plt Count 352 (150-400) K/uL Neut % (Auto) 85 H (36-66) % Lymph % (Auto) 8 L (24-44) % [place] % (Auto) 7 H (2-6) % Eos % (Auto) 0 L (2-4) % Baso % (Auto) 0 (0-1) % D-Dimer, Quantitative 477.35 (0.0-500.0) ng/mL Sodium 140 (140-148) mmol/L Potassium 4.0 (3.6-5.2) mmol/L Chloride 106 (100-108) mmol/L Carbon Dioxide 27 (21-32) mmol/L Anion Gap 7.4 (5.0-14.0) mmol/L BUN 25 H (7-18) mg/dL Creatinine 1.1 (0.8-1.3) mg/dL Est Cr Clr Drug Dosing 81.07 mL/min Estimated GFR (MDRD) > 60 (>60) Glucose 120 H (74-106) mg/dL Calcium 9.0 (8.5-10.1) mg/dL Total Bilirubin 0.3 (0.2-1.0) mg/dL AST 15 (15-37) U/L ALT 24 (12-78) U/L Alkaline Phosphatase 71 (46-116) U/L C-Reactive Protein (0.0-0.3) mg/dL Total Protein 6.3 L (6.4-8.2) g/dL Albumin 2.4 L (3.4-5.0) g/dL Globulin 3.9 H (2.3-3.5) g/dL Albumin/Globulin Ratio 0.6 L (1.2-2.2) 10/23/20 Range/Units 03:44 WBC (4.5-11.0) K/uL RBC (4.30-5.90) M/uL Hgb (12.0-15.0) g/dL Hct (40.0-54.0) % MCV (80-98) fL MCH (27-31) pg MCHC (32-36) % Plt Count (150-400) K/uL Neut % (Auto) (36-66) % Lymph % (Auto) (24-44) % [place] % (Auto) (2-6) % Eos % (Auto) (2-4) % Baso % (Auto) (0-1) % D-Dimer, Quantitative (0.0-500.0) ng/mL Sodium (140-148) mmol/L Potassium (3.6-5.2) mmol/L Chloride (100-108) mmol/L Carbon Dioxide (21-32) mmol/L Anion Gap (5.0-14.0) mmol/L BUN (7-18) mg/dL Creatinine (0.8-1.3) mg/dL Est Cr Clr Drug Dosing mL/min Estimated GFR (MDRD) (>60) Glucose (74-106) mg/dL Calcium (8.5-10.1) mg/dL Total Bilirubin (0.2-1.0) mg/dL AST (15-37) U/L ALT (12-78) U/L Alkaline Phosphatase (46-116) U/L C-Reactive Protein 2.79 H (0.0-0.3) mg/dL Total Protein (6.4-8.2) g/dL Albumin (3.4-5.0) g/dL Globulin (2.3-3.5) g/dL Albumin/Globulin Ratio (1.2-2.2) Med Orders - Current: Current Medications Acetaminophen (Tylenol) 650 mg PO Q4H PRN PRN Reason: Pain (Mild 1-3)/fever Last Admin: 10/22/20 07:38 Dose: 650 mg Documented by: Aspirin (Aspirin) 81 mg PO DAILY [facility] Last Admin: 10/23/20 09:28 Dose: 81 mg Documented by: Atenolol (Tenormin) 50 mg PO DAILY [facility] Last Admin: 10/23/20 09:27 Dose: 50 mg Documented by: Atorvastatin Calcium (Lipitor) 20 mg PO DAILY [facility] Last Admin: 10/23/20 09:28 Dose: 20 mg Documented by: Benzonatate (Tessalon Perles) 100 mg PO TID PRN PRN Reason: Cough Bisacodyl (Dulcolax) 10 mg RECTAL ONETIME ONE Stop: 10/23/20 11:45 Cyclobenzaprine HCl (Flexeril) 10 mg PO TID PRN PRN Reason: Muscle Spasm Dexamethasone (Dexamethasone) 6 mg PO DAILY [facility] Last Admin: 10/23/20 09:28 Dose: 6 mg Documented by: Enoxaparin Sodium (Lovenox) 40 mg SUBCUT DAILY [facility] Last Admin: 10/23/20 09:28 Dose: 40 mg Documented by: Gabapentin (Neurontin) 300 mg PO TID [facility] Last Admin: 10/23/20 09:28 Dose: 300 mg Documented by: Guaifenesin/Dextromethorphan (Robitussin Dm) 10 ml PO Q4H PRN PRN Reason: Cough Remdesivir 100 mg/ Sodium (Chloride) 100 mls @ 100 mls/hr IV Q24H [facility] Stop: 10/24/20 04:59 Last Admin: 10/23/20 03:21 Dose: 100 mls/hr Documented by: Loperamide HCl (Imodium) 2 mg PO Q4H PRN PRN Reason: Diarrhea Last Admin: 10/20/20 09:29 Dose: 2 mg Documented by: Lorazepam (Ativan) 0.5 mg IVPUSH Q4H PRN PRN Reason: Nausea/Vomiting Melatonin (Melatonin) 9 mg PO BEDTIME PRN PRN Reason: Sleep Ondansetron HCl (Zofran) 4 mg IV Q6H PRN PRN Reason: Nausea/Vomiting Ondansetron HCl (Zofran Odt) 4 mg PO Q6H PRN PRN Reason: Nausea able to take PO Polyethylene Glycol (Miralax) 34 gm PO ONETIME ONE Stop: 10/23/20 11:45 Ropinirole HCl (Requip) 1 mg PO BEDTIME [facility] Last Admin: 10/22/20 20:47 Dose: 1 mg Documented by: Senna/Docusate Sodium (Senna Plus) 1 tab PO BID PRN PRN Reason: Constipation Last Admin: 10/23/20 07:47 Dose: 1 tab Documented by: Discontinued Medications Gabapentin (Neurontin) 300 mg PO TID [facility] Last Admin: 10/21/20 09:01 Dose: 300 mg Documented by: Remdesivir 200 mg/ Sodium (Chloride) 250 mls @ 250 mls/hr IV ONETIME ONE Stop: 10/20/20 02:12 Last Admin: 10/20/20 02:37 Dose: 250 mls/hr Documented by: Ropinirole HCl (Requip) 1 mg PO BEDTIME [facility] Last Admin: 10/20/20 20:43 Dose: 1 mg Documented by: - Exam Quality Assessment: Supplemental Oxygen, DVT Prophylaxis General: Alert, Oriented, Cooperative, Mild Distress Lungs: Clear to Auscultation, Normal Respiratory Effort, Decreased Breath Sounds Cardiovascular: Regular Rate, Regular Rhythm, No Murmurs GI/Abdominal Exam: Soft, Non-Tender, No Organomegaly, No Distention Extremities: Non-Tender, No Pedal Edema Sepsis Event Note - Evaluation Sepsis Screening Result: No Definite Risk - Focused Exam Vital Signs: Vital Signs Temp Pulse Pulse Resp BP BP Pulse Ox 10/23/20 11:00 97.7 F 69 16 111/56 L 95 10/23/20 09:27 80 132/65 10/23/20 07:43 97 F 10/23/20 07:32 93 L 10/23/20 07:00 95.0 F L 69 16 132/65 96 10/23/20 03:00 95.0 F L 70 18 113/48 L 92 L 10/23/20 01:00 94 L - Problem List Review Problem List Initiated/Reviewed/Updated: Yes - My Orders Last 24 Hours: My Active Orders 10/23/20 11:44 bisacodyL [Dulcolax] 10 mg RECTAL ONETIME ONE polyethylene glycoL 3350 [MiraLAX] 34 gm PO ONETIME ONE - Plan Plan:: ASSESSMENT AND PLAN Pneumonia due to COVID-19 infection-going improvement, down to 1 L of oxygen per minute -Supplement oxygen -Continue dexamethasone 6 mg daily (day 7, started on 10/17 as outpatient) -Convalescent plasma daily x3 days, completed -Remdesivir x5 days (day 4 of 5) -Symptomatic management of cough and diarrhea -Isolation Acute kidney injury-renal function improved -Continue to closely monitor urine output and renal function Maintenance issues - - DVT prophylaxis -enoxaparin - GI prophylaxis -not indicated - Nutrition -regular - Maldonado catheter -not indicated CODE STATUS -full code Admission justification -this patient will be admitted for inpatient services and is medically appropriate meeting medical necessity for inpatient admission as outlined in my documentation. I reasonably expect the patient will require inpatient services that span a period time over 2 midnights. I reasonably expect this patient to be discharged or transferred within 96 hours after admission to the Critical [facility]. Disposition -I would anticipate discharge home tomorrow Primary care physician -Dr. Schuyler Crow
[2020-10-23] MEDS ORDERED: Polyethylene Glycol 3350 Powder 17 GM Packet PO ONE (12:30)
[2020-10-23] MEDS ORDERED: Bisacodyl 10 MG Supp RECTAL ONE (12:30)
[2020-10-23] MEDS: rOPINIRole 1 MG Tab PO SCH (20:07)
[2020-10-23] MEDS: Acetaminophen 325 MG Tab PO PRN (20:07)
[2020-10-24] MEDS: REMDESIVIR 100 MG in Sodium Chloride 0.9% 100 ML IV SCH (03:02)
[2020-10-24] MEDS: Gabapentin 300 MG Cap PO SCH (08:17)
[2020-10-24] MEDS: Atenolol 25 MG Tab PO SCH (08:17)
[2020-10-24] MEDS: Aspirin 81 MG Tab.Chew PO SCH (08:17)
[2020-10-24] MEDS: atorvaSTATin 20 MG Tab PO SCH (08:17)
[2020-10-24] MEDS: Dexamethasone 2 MG Tab PO SCH (08:18)
[2020-10-24] MEDS: Enoxaparin 40 MG/0.4 ML Syringe SUBCUT SCH (08:18)
--- NOTE | 2020-10-24 10:46 | PCM.DCSUM1 ---
Discharge Summary - Hospital Course Brief History: Mr. Buitrago is a 65-year-old gentleman who was admitted through the emergency department with shortness of breath and hypoxia secondary to COVID-19 and bilateral pneumonia. - Discharge Data Discharge Date: 10/24/20 Discharge Disposition: Home, Self-Care 01 Condition: Fair - Referral to Home Health Primary Care Physician: Schuyler Crow Sr, MD - Discharge Diagnosis/Problem(s) (1) Pneumonia due to 2019 novel coronavirus SNOMED Code(s): 427345902710682980 ICD Code: U07.1 - COVID-19; J12.89 - OTHER VIRAL PNEUMONIA Status: Acute Current Visit: Yes (2) Acute respiratory failure with hypoxia SNOMED Code(s): 81972023, 224531443 ICD Code: J96.01 - ACUTE RESPIRATORY FAILURE WITH HYPOXIA Status: Acute Current Visit: Yes (3) Acute kidney injury SNOMED Code(s): 19104939, 34857086 ICD Code: N17.9 - ACUTE KIDNEY FAILURE, UNSPECIFIED Status: Acute Current Visit: Yes - Patient Summary/Data Hospital Course: Mr. Buitrago presented to the emergency room with progressive symptoms of cough, shortness of breath, weakness, fatigue and diarrhea. This is day 9 of symptoms related to COVID-19 infection. He has lost his taste and smell. He has had nausea but no vomiting as well as fairly consistent watery diarrhea. He has some mild generalized abdominal pain which is crampy in nature. He has had progressive shortness of breath especially over the last few days. He is now short of breath after walking only 10 feet or so. He has a dry and nonproductive cough. Subjective fevers and chills. No appetite or energy. He was seen in the clinic 3 days ago and started on dexamethasone. He has continued to get worse despite the anti-inflammatory. His is also sick but got sick several days after he did. Work-up in the emergency room revealed acute respiratory failure with hypoxia. Laboratory studies revealed mild leukocytosis and moderate elevation of D-dimer and CRP. Chest x-ray had some mild right-side d infiltrates all consistent with Covid infection. The patient is hypoxic and has been started on the remdesivir in addition to his steroids. He is going to be admitted to the Covid unit for further management. On admission he was started on usual therapy for Covid infection including; remdesivir, convalescent plasma, and dexamethasone IV. He was given supplemental oxygen as needed to maintain oxygenation of 90%. First 24 hours of admission his oxygen use did increase, but then slowly decrease thereafter until he was stable with good oxygenation on room air on the day of discharge. He was also treated with enoxaparin daily and will be discharged home with an additional 9 doses of enoxaparin. Activity will be as tolerated and he will resume his usual diet. Follow-up appointment should be scheduled with Dr. Crow within 1 week. He is instructed to maintain self-isolation and quarantine for a total of 20 days after onset of his original symptoms. - Patient Instructions Diet: Usual Diet as Tolerated Activity: As Tolerated Other/Special Instructions: Please schedule follow-up appointment with Dr. Crow within 1 week. Plan on continuing self-isolation and quarantine until 20 days from onset of first symptoms. - Discharge Plan *PRESCRIPTION DRUG MONITORING PROGRAM REVIEWED*: Not Applicable *COPY OF PRESCRIPTION DRUG MONITORING REPORT IN PATIENT RYAN: Not Applicable Prescriptions/Med Rec: Enoxaparin [Lovenox] 40 mg SUBCUT DAILY #9 syringe Home Medications: Home Meds Aspirin [Jaja Chewable Aspirin] 81 mg PO DAILY 03/10/15 [History] Cyclobenzaprine HCl 10 mg PO TID PRN 03/10/15 [History] Gabapentin [Neurontin] 300 mg PO TID 03/10/15 [History] Loratadine 10 mg PO DAILY PRN 03/10/15 [History] Multivitamin [Multiple Vitamins] 1 tab PO BID 03/10/15 [History] atorvaSTATin Calcium [Atorvastatin Calcium] 20 mg PO DAILY 03/10/15 [History] rOPINIRole [Requip] 1 mg PO BEDTIME 03/10/15 [History] Naproxen 500 mg PO TID 06/19/17 [History] atenoloL [Atenolol] 50 mg PO DAILY 10/20/20 [History] Enoxaparin [Lovenox] 40 mg SUBCUT DAILY #9 syringe 10/24/20 [Rx] Referrals: Schuyler Crow Sr, MD [Primary Care Provider] - 11/05/20 1:00 pm (Your appointment is a phone visit with Dr. Crow on the date and time listed.) - Discharge Summary/Plan Comment DC Time >30 min.: No - Patient Data Vitals - Most Recent: Last Vital Signs Temp 96.4 F L 10/24/20 07:03 Pulse 64 10/24/20 08:17 Resp 16 10/24/20 07:03 BP 128/65 10/24/20 08:17 Pulse Ox 93 L 10/24/20 07:43 Weight - Most Recent: 242 lb 15.19 oz I&O - Last 24 hours: Intake & Output 10/23/20 10/24/20 10/24/20 22:59 06:59 14:59 Intake Total 236 500 240 Balance 236 500 240 Med Orders - Current: Current Medications Acetaminophen (Tylenol) 650 mg PO Q4H PRN PRN Reason: Pain (Mild 1-3)/fever Last Admin: 10/23/20 20:07 Dose: 650 mg Documented by: Aspirin (Aspirin) 81 mg PO DAILY [facility] Last Admin: 10/24/20 08:17 Dose: 81 mg Documented by: Atenolol (Tenormin) 50 mg PO DAILY [facility] Last Admin: 10/24/20 08:17 Dose: 50 mg Documented by: Atorvastatin Calcium (Lipitor) 20 mg PO DAILY [facility] Last Admin: 10/24/20 08:17 Dose: 20 mg Documented by: Benzonatate (Tessalon Perles) 100 mg PO TID PRN PRN Reason: Cough Cyclobenzaprine HCl (Flexeril) 10 mg PO TID PRN PRN Reason: Muscle Spasm Dexamethasone (Dexamethasone) 6 mg PO DAILY [facility] Last Admin: 10/24/20 08:18 Dose: 6 mg Documented by: Enoxaparin Sodium (Lovenox) 40 mg SUBCUT DAILY [facility] Last Admin: 10/24/20 08:18 Dose: 40 mg Documented by: Gabapentin (Neurontin) 300 mg PO TID [facility] Last Admin: 10/24/20 08:17 Dose: 300 mg Documented by: Guaifenesin/Dextromethorphan (Robitussin Dm) 10 ml PO Q4H PRN PRN Reason: Cough Loperamide HCl (Imodium) 2 mg PO Q4H PRN PRN Reason: Diarrhea Last Admin: 10/20/20 09:29 Dose: 2 mg Documented by: Lorazepam (Ativan) 0.5 mg IVPUSH Q4H PRN PRN Reason: Nausea/Vomiting Melatonin (Melatonin) 9 mg PO BEDTIME PRN PRN Reason: Sleep Ondansetron HCl (Zofran) 4 mg IV Q6H PRN PRN Reason: Nausea/Vomiting Ondansetron HCl (Zofran Odt) 4 mg PO Q6H PRN PRN Reason: Nausea able to take PO Ropinirole HCl (Requip) 1 mg PO BEDTIME [facility] Last Admin: 10/23/20 20:07 Dose: 1 mg Documented by: Senna/Docusate Sodium (Senna Plus) 1 tab PO BID PRN PRN Reason: Constipation Last Admin: 10/23/20 07:47 Dose: 1 tab Documented by: Discontinued Medications Bisacodyl (Dulcolax) 10 mg RECTAL ONETIME ONE Stop: 10/23/20 12:31 Last Admin: 10/24/20 08:18 Dose: 10 mg Documented by: Gabapentin (Neurontin) 300 mg PO TID [facility] Last Admin: 10/21/20 09:01 Dose: 300 mg Documented by: Remdesivir 200 mg/ Sodium (Chloride) 250 mls @ 250 mls/hr IV ONETIME ONE Stop: 10/20/20 02:12 Last Admin: 10/20/20 02:37 Dose: 250 mls/hr Documented by: Remdesivir 100 mg/ Sodium (Chloride) 100 mls @ 100 mls/hr IV Q24H [facility] Stop: 10/24/20 04:59 Last Admin: 10/24/20 03:02 Dose: 100 mls/hr Documented by: Polyethylene Glycol (Miralax) 34 gm PO ONETIME ONE Stop: 10/23/20 12:31 Last Admin: 10/23/20 12:42 Dose: 34 gm Documented by: Ropinirole HCl (Requip) 1 mg PO BEDTIME [facility] Last Admin: 10/20/20 20:43 Dose: 1 mg Documented by: - Exam General: Reports: Alert, Oriented, Cooperative, No Acute Distress Lungs: Reports: Clear to Auscultation, Normal Respiratory Effort Cardiovascular: Reports: Regular Rate, Regular Rhythm, No Murmurs GI/Abdominal Exam: Soft, Non-Tender, No Organomegaly, No Distention Extremities: Non-Tender, No Pedal Edema
[2020-10-24 11:01] VITALS: BP 141/81; PULSE 68
== END 2020-10-24 11:29 | disposition home or self-care (01) | DRG 177 ==
LOC: JP.ED 23:57 → JP.2SS 10-20 03:06
PROVIDERS: ADMIT Internal Medicine; ATTEND Hospitalist
PROC: XW033E5 Introduction of Remdesivir Anti-infective into Peripheral Vein, Percutaneous Approach, New Technology Group 5 (ICD-10-PCS; principal; 2020-10-20)
PROC: 30233K1 Transfusion of Nonautologous Frozen Plasma into Peripheral Vein, Percutaneous Approach (ICD-10-PCS; principal; 2020-10-20)
PROC: XW13325 Transfusion of Convalescent Plasma (Nonautologous) into Peripheral Vein, Percutaneous Approach, New Technology Group 5 (ICD-10-PCS; 2020-10-21)
DX: U07.1 COVID-19 (principal); J12.89 Other viral pneumonia; J96.01 Acute respiratory failure with hypoxia; N17.9 Acute kidney failure, unspecified; Z98.890 Other specified postprocedural states; H54.7 Unspecified visual loss; F32.9 Major depressive disorder, single episode, unspecified; Z88.5 Allergy status to narcotic agent; Z88.8 Allergy status to other drugs, medicaments and biological substances; Z91.041 Radiographic dye allergy status; Z79.82 Long term (current) use of aspirin; Z79.899 Other long term (current) drug therapy; Z99.81 Dependence on supplemental oxygen
CPT/HCPCS: 36415; 71046 ×2; 80053; 82728; 85025; 85379; 86140; 86900; 86901; 87635; 96365; 99285; J7050; 36430; 85027; 94762; 99284; A9270-GY; J1650; J8540; P9017; U0002

== ENCOUNTER 2021-11-11 23:14 | Emergency (ER) | payer OTHER, MEDICARE ==
[2021-11-11 23:30] VITALS: BP 140/79; PULSE 100
--- NOTE | 2021-11-11 23:38 | EDM.PDOC ---
ED HPI GENERAL MEDICAL PROBLEM - General Chief Complaint: Respiratory Problem Stated Complaint: COUGH Time Seen by Provider: 11/11/21 23:25 Source of Information: Reports: Patient History Limitations: Reports: No Limitations - History of Present Illness INITIAL COMMENTS - FREE TEXT/NARRATIVE: Abhinav is a 66-year-old male presenting to the ED for evaluation of worsening dyspnea over the last 3 weeks. Patient has a past medical history significant for COPD with chronic bronchitis, recurrent pneumonias, COVID-19 in September 2020, and was in his usual state of health until 3 weeks ago when he started develop rhinitis, congestion, and a deep productive cough. The patient states that he frequently uses his nebulizer machine when he has an exacerbation of COPD but instead of it "loosening him up", this time it "tightened him up" and he saw his primary care provider Dr. Schuyler Crow who told him that it was likely the moisture in the nebulizer that caused his worsening symptoms and instead put him on an albuterol inhaler. Patient states that he has had some mild improvement with the albuterol inhaler but continues to have worsening congestion and more difficulty with breathing. The patient has had 2 vaccinations for COVID-19 since having Covid last year. He did get his influenza vaccine as well about a month ago. He has not had his Pneumovax vaccine. As the patient sees Dr. Crow, there is very limited medical records available here about the patient. chest pain due to cough Pain Score (Numeric/FACES): 4 - Related Data Allergies Allergy/AdvReac Type Severity Reaction Status Date / Time Iodinated Contrast Media Allergy Severe Paralysis Verified 11/11/21 23:40 [Iodinated Contrast- Oral and IV Dye] codeine Allergy Itching Verified 11/11/21 23:40 morphine Allergy Other Verified 11/11/21 23:40 oxycodone Allergy Other Verified 11/11/21 23:40 simvastatin Allergy Itching Verified 11/11/21 23:40 Home Meds: Home Meds Cyclobenzaprine HCl 10 mg PO BID 03/10/15 [History] Gabapentin [Neurontin] 600 mg PO QID 03/10/15 [History] Loratadine 10 mg PO DAILY PRN 03/10/15 [History] Multivitamin [Multiple Vitamins] 1 tab PO BID 03/10/15 [History] atorvaSTATin Calcium [Atorvastatin Calcium] 20 mg PO DAILY 03/10/15 [History] Naproxen 500 mg PO BID 06/19/17 [History] atenoloL [Atenolol] 50 mg PO DAILY 10/20/20 [History] Albuterol [Ventolin HFA] 1 - 2 inh INH ASDIRECTED PRN 11/11/21 [History] predniSONE [Prednisone] 40 mg PO DAILY #10 tablet 11/12/21 [Rx] Past Medical History HEENT History: Reports: Impaired Vision Psychiatric History: Reports: Depression - Infectious Disease History Infectious Disease History: Reports: Chicken Pox - Past Surgical History GI Surgical History: Reports: Colonoscopy Musculoskeletal Surgical History: Reports: Other (See Below) Other Musculoskeletal Surgeries/Procedures:: 4 spacers in loere spine.- Social & Family History - Family History Family Medical History: No Pertinent Family History - Caffeine Use Caffeine Use: Reports: Coffee, Soda ED ROS GENERAL - Review of Systems Review Of Systems: See Below Constitutional: Reports: No Symptoms HEENT: Reports: Rhinitis Respiratory: Reports: Shortness of Breath, Cough, Sputum Cardiovascular: Reports: No Symptoms Endocrine: Reports: No Symptoms GI/Abdominal: Reports: No Symptoms : Reports: No Symptoms Musculoskeletal: Reports: No Symptoms Skin: Reports: No Symptoms Neurological: Reports: No Symptoms Psychiatric: Reports: No Symptoms Hematologic/Lymphatic: Reports: No Symptoms Immunologic: Reports: No Symptoms ED EXAM, GENERAL - Physical Exam Exam: See Below Exam Limited By: No Limitations General Appearance: Alert, No Apparent Distress, Anxious Eye Exam: Bilateral Eye: EOMI, PERRL Nose: Normal Inspection, Normal Mucosa Throat/Mouth: Normal Inspection, Normal Oropharynx, Normal Voice, No Airway Compromise Head: Atraumatic Neck: Normal Inspection, Supple Respiratory/Chest: No Respiratory Distress, Lungs Clear, No Accessory Muscle Use. No: Crackles, Rales, Rhonchi, Wheezing Cardiovascular: Normal Peripheral Pulses, Regular Rate, Rhythm, No Murmur, Tachy cardia GI/Abdominal: Normal Bowel Sounds, Soft, Non-Tender Extremities: Normal Inspection Neurological: Alert, Oriented, Normal Cognition, No Motor/Sensory Deficits Psychiatric: Normal Affect, Normal Mood Skin Exam: Warm, Dry Course - Vital Signs Last Recorded V/S: Last Vital Signs Temp 36.7 C 11/11/21 23:31 Pulse 100 11/11/21 23:31 Resp 18 11/11/21 23:31 BP 140/79 11/11/21 23:31 Pulse Ox 93 L 11/11/21 23:31 - Orders/Labs/Meds Orders: Active Orders 24 hr Category Date Time Status Chest 2V [CR] Stat Exams 11/11/21 23:26 Taken Isolation [COMM] Stat Oth 11/11/21 23:27 Ordered Labs: Laboratory Tests 11/11/21 11/11/21 11/11/21 Range/Units 23:40 23:40 23:40 WBC 9.2 (4.5-11.0) K/uL RBC 4.91 (4.30-5.90) M/uL Hgb 14.7 (12.0-15.0) g/dL Hct 44.1 (40.0-54.0) % MCV 90 (80-98) fL MCH 30 (27-31) pg MCHC 33 (32-36) % Plt Count 304 (150-400) K/uL Neut % (Auto) 53.3 (36-66) % Lymph % (Auto) 36.6 (24-44) % Lanier % (Auto) 5.7 (2-6) % Eos % (Auto) 3.9 (2-4) % Baso % (Auto) 0.5 (0-1) % D-Dimer, Quantitative 404.15 (0.0-500.0) ng/mL Sodium 142 (140-148) mmol/L Potassium 3.7 (3.6-5.2) mmol/L Chloride 105 (100-108) mmol/L Carbon Dioxide 28 (21-32) mmol/L Anion Gap 9.4 (5.0-14.0) mmol/L BUN 18 (7-18) mg/dL Creatinine 1.4 H (0.8-1.3) mg/dL Est Cr Clr Drug Dosing 59.53 mL/min Estimated GFR (MDRD) 51 L (>60) Glucose 160 H (74-106) mg/dL Calcium 9.3 (8.5-10.1) mg/dL Total Bilirubin 0.3 (0.2-1.0) mg/dL AST 14 L (15-37) U/L ALT 34 (12-78) U/L Alkaline Phosphatase 92 (46-116) U/L NT-Pro-B Natriuret Pep 34 (5-125) pg/mL Total Protein 6.7 (6.4-8.2) g/dL Albumin 3.7 (3.4-5.0) g/dL Globulin 3.0 (2.3-3.5) g/dL Albumin/Globulin Ratio 1.2 (1.2-2.2) Meds: Medications Discontinued Medications Generic Name Dose Route Start Last Admin Trade Name June PRN Reason Stop Dose Admin Methylprednisolone Sodium Succinate 125 mg 11/12/21 00:22 Methylprednisolone Sodium Succinate 125 Mg/2 Ml Sdv IM 11/12/21 00:23 ONETIME ONE - Radiology Interpretation Free Text/Narrative:: I reviewed the two-view chest x-ray and compared it to his previous done in September 2020 when the patient had COVID-19. Currently there is no sign for infiltrates but there is a chronically elevated right hemidiaphragm. There is no hilar adenopathy. Normal cardiac silhouette. - Re-Assessments/Exams Free Text/Narrative Re-Assessment/Exam: 11/12/21 00:09 I reviewed the patient's labs showing a normal CBC with a leukocyte count of 9.2, hemoglobin of 14.7 and platelet count of 304,000. 11/12/21 00:24 the comprehensive metabolic panel is unremarkable with a sodium of 142, potassium 3.7, chloride of 105, bicarbonate of twenty-eight, BUN of eighteen with a creatinine 1.4 and a glucose of 160. GFR is calculated at fifty-one. AST and ALT are normal. D-dimer is normal at 404 and a BNP is normal at fourteen. The chest x-ray is also unremarkable for any acute infiltrates. This is likely an acute exacerbation of COPD that has been ongoing despite the patient being on albuterol inhaler. We will treat him with Solu- Medrol 125 mg IM today and then put him on a 5-day course of prednisone 40 mg daily for his exacerbation. I did reassure him that there is no evidence for acute on chronic bronchitis or pneumonia. At this time, the patient is suitable for discharge home in satisfactory condition. All questions were answered. Indications return to the ED were discussed. Departure - Departure Time of Disposition: 00:25 Disposition: Home, Self-Care 01 Clinical Impression: COPD with exacerbation - Discharge Information Prescriptions: predniSONE [Prednisone] 40 mg PO DAILY #10 tablet Instructions: Chronic Obstructive Pulmonary Disease Exacerbation, [id number] Referrals: Schuyler Crow Sr, MD [Primary Care Provider] - Forms: ED Department Discharge Care Plan Goals: Your work-up today shows that this is likely continued exacerbation of chronic obstructive pulmonary disease or COPD. Continue with the albuterol every 4 hours as needed but we will also put you on a 5-day course of prednisone to reduce inflammation in the airways. This should help make it easier for you to breathe. We initiated this with Solu-Medrol 125 mg intramuscularly in the ED tonight. There was no evidence in the work-up for pneumonia or infectious bronchitis. Sepsis Event Note (ED) - Evaluation Sepsis Screening Result: No Definite Risk - Focused Exam Vital Signs: Vital Signs Temp Pulse Resp BP Pulse Ox 11/11/21 23:31 36.7 C 100 18 140/79 93 L 11/11/21 23:29 36.7 C 100 18 140/79 93 L - Problem List & Annotations (1) COPD with exacerbation SNOMED Code(s): 173253462 Code(s): J44.1 - CHRONIC OBSTRUCTIVE PULMONARY DISEASE W (ACUTE) EXACERBATION Status: Acute Priority: Medium Current Visit: Yes - Problem List Review Problem List Initiated/Reviewed/Updated: Yes - My Orders Last 24 Hours: My Active Orders 11/11/21 23:26 Chest 2V [CR] Stat 11/11/21 23:27 Isolation [COMM] Stat - Assessment/Plan Last 24 Hours: My Active Orders 11/11/21 23:26 Chest 2V [CR] Stat 11/11/21 23:27 Isolation [COMM] Stat
[2021-11-12 00:22] LABS: CORONAVIRUS COVID-19 NAA NEGATIVE (NEGATIVE)
[2021-11-12] MEDS ORDERED: methylPREDNISolone Sodium Succinate 125 MG/2 ML SDV IM ONE (00:22)
--- NOTE | 2021-11-12 10:22 | CR ---
CHEST: 2 view CLINICAL HISTORY:Increasing dyspnea COMPARISON:September 2020 FINDINGS: The heart size, pulmonary vascularity and hilar structures are normal. There is mild increase in lung markings in the right lower lung field. Some of this may be chronic. IMPRESSION: Mildly increased lung markings particularly in the right lower lung field. This may be chronic. Superimposed pneumonitis is not excluded. If clinical symptomatology persists or worsens a repeat exam is recommended.
== END 2021-11-12 01:00 | disposition home or self-care (01) ==
LOC: JP.ED 23:14
DX: J44.1 Chronic obstructive pulmonary disease with (acute) exacerbation (principal); Z88.5 Allergy status to narcotic agent; Z91.041 Radiographic dye allergy status; Z88.8 Allergy status to other drugs, medicaments and biological substances; Z20.822 Contact with and (suspected) exposure to COVID-19
CPT/HCPCS: 0241U; 36415; 71046; 80053; 83880; 85025; 85379; 96372; 99285; J2930

== ENCOUNTER 2022-02-21 15:57 | Emergency (ER) | payer OTHER, MEDICARE ==
[2022-02-21] MEDS ORDERED: Benzonatate 100 MG Cap PO ONE (16:48)
[2022-02-21 16:56] VITALS: BP 141/83; PULSE 85
== END 2022-02-21 17:08 | disposition home or self-care (01) ==
LOC: JP.ED 15:57
DX: J44.1 Chronic obstructive pulmonary disease with (acute) exacerbation (principal); I10 Essential (primary) hypertension; Z87.891 Personal history of nicotine dependence; Z91.041 Radiographic dye allergy status; Z88.5 Allergy status to narcotic agent; Z88.6 Allergy status to analgesic agent; Z88.8 Allergy status to other drugs, medicaments and biological substances; Z79.899 Other long term (current) drug therapy
CPT/HCPCS: 71045; 71045-26; 93005; 93010; 99284; 99285-25

== ENCOUNTER 2022-06-25 07:30 | Day surgery (SDC) | payer MEDICARE, OTHER ==
[2022-06-25] MEDS ORDERED: Sodium Chloride 0.9% 10 ML Syringe FLUSH PRN (08:00)
[2022-06-25 08:48] VITALS: BP 117/64; PULSE 67
== END 2022-06-25 08:59 | disposition home or self-care (01) ==
LOC: JP.SDS 07:30
PROVIDERS: ATTEND Ophthalmology
DX: H25.12 Age-related nuclear cataract, left eye (principal); G47.33 Obstructive sleep apnea (adult) (pediatric); I10 Essential (primary) hypertension; K21.9 Gastro-esophageal reflux disease without esophagitis
CPT/HCPCS: 66984; J3490; V2632

== ENCOUNTER 2022-07-09 09:15 | Day surgery (SDC) | payer MEDICARE, OTHER ==
[2022-07-09] MEDS ORDERED: Sodium Chloride 0.9% 10 ML Syringe FLUSH ONE (10:00)
[2022-07-09 10:21] VITALS: BP 132/84; PULSE 81
== END 2022-07-09 10:49 | disposition home or self-care (01) ==
LOC: JP.SDS 09:15
PROVIDERS: ATTEND Ophthalmology
DX: H25.11 Age-related nuclear cataract, right eye (principal); I10 Essential (primary) hypertension; E78.5 Hyperlipidemia, unspecified; J45.909 Unspecified asthma, uncomplicated
CPT/HCPCS: 66984; J3490; V2632

== ENCOUNTER 2023-01-18 18:54 | Emergency (ER) | payer MEDICARE, OTHER ==
[2023-01-18 19:26] VITALS: BP 142/74; PULSE 82
[2023-01-18] MEDS ORDERED: Acetaminophen/HYDROcodone 325-5 MG Tab PO STA (20:07)
== END 2023-01-18 21:26 | disposition home or self-care (01) ==
LOC: JP.ED 18:54
DX: S82.832A Other fracture of upper and lower end of left fibula, initial encounter for closed fracture (principal); E78.00 Pure hypercholesterolemia, unspecified; I10 Essential (primary) hypertension; J44.9 Chronic obstructive pulmonary disease, unspecified; K21.9 Gastro-esophageal reflux disease without esophagitis; E03.9 Hypothyroidism, unspecified; Z86.16 Personal history of COVID-19; Z91.041 Radiographic dye allergy status; Z88.5 Allergy status to narcotic agent; Z88.8 Allergy status to other drugs, medicaments and biological substances; Z79.899 Other long term (current) drug therapy; W00.0XXA Fall on same level due to ice and snow, initial encounter
CPT/HCPCS: 29505; 73610; 73630; 99283; A9270

== ENCOUNTER 2023-02-06 00:47 | Inpatient (IN) | payer OTHER ==
[2023-02-06] MEDS ORDERED: Sodium Chloride 0.9% 1,000 ML IV STA (01:40)
[2023-02-06] MEDS ORDERED: Sodium Chloride 0.9% 10 ML Syringe FLUSH PRN (01:40)
[2023-02-06] MEDS ORDERED: Ondansetron 4 MG/2 ML SDV IVPUSH ONE (01:42)
[2023-02-06 02:13] LABS: ESTIMATED GFR 50 mL/min (>60)
[2023-02-06] MEDS ORDERED: Ondansetron 4 MG/2 ML SDV IV PRN (05:28)
[2023-02-06] MEDS ORDERED: fentaNYL 50 MCG/ML SDV IVPUSH PRN (05:31)
[2023-02-06] MEDS ORDERED: Albuterol 90 MCG/6.7 GM Inhaler INH PRN (05:32)
[2023-02-06 05:44] LABS: CORONAVIRUS COVID-19 NAA NEGATIVE (NEGATIVE)
[2023-02-06] MEDS: Sodium Chloride 0.9% 1,000 ML IV SCH (06:38)
[2023-02-06] MEDS: Enoxaparin 30 MG/0.3 ML Syringe SUBCUT SCH (12:41)
[2023-02-06] MEDS: Levothyroxine 25 MCG Tab PO SCH (12:41)
[2023-02-06] MEDS: MENTHOL TOP SCH (12:42)
[2023-02-06] MEDS: LIDOCAINE TOP SCH (12:42)
[2023-02-06] MEDS: Atenolol 25 MG Tab PO SCH (12:42)
[2023-02-06] MEDS: [UNRECOGNIZED DRUG - OTHER] TOP SCH (12:42)
[2023-02-06] MEDS: Multivitamins with Iron/Calcium/Folic Acid/Minerals Tab PO SCH (22:12)
[2023-02-07] MEDS: Sodium Chloride 0.9% 1,000 ML IV SCH ×3 (05:19→16:41)
[2023-02-07] MEDS: LIDOCAINE TOP SCH (08:36)
[2023-02-07] MEDS: Levothyroxine 25 MCG Tab PO SCH (08:36)
[2023-02-07] MEDS: [UNRECOGNIZED DRUG - OTHER] TOP SCH (08:36)
[2023-02-07] MEDS: MENTHOL TOP SCH (08:36)
[2023-02-07] MEDS: Atenolol 25 MG Tab PO SCH (08:37)
[2023-02-07] MEDS: Multivitamins with Iron/Calcium/Folic Acid/Minerals Tab PO SCH ×2 (08:37→20:04)
[2023-02-07] MEDS ORDERED: Acetaminophen 500 MG Tab PO PRN (08:41)
[2023-02-07] MEDS ORDERED: Atenolol 25 MG Tab PO SCH (09:00)
[2023-02-07] MEDS ORDERED: Levothyroxine 25 MCG Tab PO SCH (09:00)
[2023-02-07] MEDS: Enoxaparin 30 MG/0.3 ML Syringe SUBCUT SCH (14:21)
[2023-02-08] MEDS: Levothyroxine 25 MCG Tab PO SCH (08:20)
[2023-02-08] MEDS: MENTHOL TOP SCH (08:21)
[2023-02-08] MEDS: [UNRECOGNIZED DRUG - OTHER] TOP SCH (08:21)
[2023-02-08] MEDS: LIDOCAINE TOP SCH (08:21)
[2023-02-08] MEDS: Atenolol 25 MG Tab PO SCH (08:22)
[2023-02-08] MEDS: Multivitamins with Iron/Calcium/Folic Acid/Minerals Tab PO SCH ×2 (08:22→21:22)
[2023-02-08] MEDS: Sodium Chloride 0.9% 1,000 ML IV SCH (08:30)
[2023-02-08] MEDS: Enoxaparin 40 MG/0.4 ML Syringe SUBCUT SCH (13:47)
[2023-02-09] MEDS: Levothyroxine 25 MCG Tab PO SCH (07:44)
[2023-02-09] MEDS: MENTHOL TOP SCH (08:42)
[2023-02-09] MEDS: [UNRECOGNIZED DRUG - OTHER] TOP SCH (08:42)
[2023-02-09] MEDS: LIDOCAINE TOP SCH (08:42)
[2023-02-09] MEDS: Multivitamins with Iron/Calcium/Folic Acid/Minerals Tab PO SCH (08:43)
[2023-02-09] MEDS: Atenolol 25 MG Tab PO SCH (08:51)
[2023-02-09 11:23] VITALS: BP 126/84; PULSE 66
[2023-02-09] MEDS: Enoxaparin 40 MG/0.4 ML Syringe SUBCUT SCH (13:28)
== END 2023-02-09 13:29 | disposition home or self-care (01) | DRG 390 ==
LOC: JP.ED 00:47 → JP.MS 05:29 → UNDOADMIN 05:40 → JP.MS 05:40
PROVIDERS: ADMIT Internal Medicine; ATTEND Internal Medicine
PROC: 8E0ZXY6 Isolation (ICD-10-PCS; principal; 2023-02-06)
DX: K56.600 Partial intestinal obstruction, unspecified as to cause (principal); E78.00 Pure hypercholesterolemia, unspecified; I10 Essential (primary) hypertension; J44.9 Chronic obstructive pulmonary disease, unspecified; G47.30 Sleep apnea, unspecified; K21.9 Gastro-esophageal reflux disease without esophagitis; M19.90 Unspecified osteoarthritis, unspecified site; G89.29 Other chronic pain; Z20.822 Contact with and (suspected) exposure to COVID-19; R63.0 Anorexia; M54.2 Cervicalgia; F32.A Depression, unspecified; E03.9 Hypothyroidism, unspecified; H66.90 Otitis media, unspecified, unspecified ear; J32.9 Chronic sinusitis, unspecified; H54.7 Unspecified visual loss; Z87.01 Personal history of pneumonia (recurrent); Z98.890 Other specified postprocedural states; Z79.51 Long term (current) use of inhaled steroids; Z88.5 Allergy status to narcotic agent; Z88.8 Allergy status to other drugs, medicaments and biological substances; Z91.041 Radiographic dye allergy status; Z79.899 Other long term (current) drug therapy; Z98.49 Cataract extraction status, unspecified eye; Z68.29 Body mass index [BMI] 29.0-29.9, adult
CPT/HCPCS: 0241U; 36415; 71045; 71045-26; 74018; 74018-26; 74176; 80048; 80053; 81001; 83605; 83690; 83735; 84100; 85025; 85027; 96374; 99285; 99285-25; A9270-GY; J1650; J2405; J3490; J7030

== ENCOUNTER 2023-11-12 06:53 | Day surgery (SDC) | payer MEDICARE, OTHER ==
[2023-11-12] MEDS ORDERED: fentaNYL 50 MCG/ML SDV ONE (07:21)
[2023-11-12] MEDS ORDERED: Midazolam 1 MG/ML 2 ML SDV ONE (07:21)
[2023-11-12] MEDS ORDERED: Propofol 200 MG/20 ML SDV ONE ×2 (07:21→08:27)
[2023-11-12] MEDS ORDERED: Lactated Ringers 1,000 ML IV SCH (07:30)
[2023-11-12 09:51] VITALS: BP 123/67; PULSE 65
== END 2023-11-12 10:07 | disposition home or self-care (01) ==
LOC: JP.SDS 06:53
PROVIDERS: ATTEND Student in an Organized Health Care Education/Training Program
DX: R10.30 Lower abdominal pain, unspecified (principal); K21.9 Gastro-esophageal reflux disease without esophagitis; I10 Essential (primary) hypertension; G47.33 Obstructive sleep apnea (adult) (pediatric); J44.9 Chronic obstructive pulmonary disease, unspecified; Z88.8 Allergy status to other drugs, medicaments and biological substances
CPT/HCPCS: 45378; J2250; J2704; J3010; J7120

== ENCOUNTER 2025-02-22 14:05 | Emergency (ER) | payer OTHER, MEDICARE ==
[2025-02-22 14:48] VITALS: BP 151/67; PULSE 71
== END 2025-02-22 17:03 | disposition home or self-care (01) ==
LOC: JP.ED 14:05
DX: R26.2 Difficulty in walking, not elsewhere classified (principal); I10 Essential (primary) hypertension; J45.909 Unspecified asthma, uncomplicated; E78.00 Pure hypercholesterolemia, unspecified; K21.9 Gastro-esophageal reflux disease without esophagitis; E03.9 Hypothyroidism, unspecified; Z88.5 Allergy status to narcotic agent; Z88.8 Allergy status to other drugs, medicaments and biological substances; Z91.041 Radiographic dye allergy status; Z79.51 Long term (current) use of inhaled steroids; Z79.890 Hormone replacement therapy; Z79.899 Other long term (current) drug therapy
CPT/HCPCS: 72100; 72100-26; 99283

== ENCOUNTER 2025-07-25 15:17 | Emergency (ER) | payer OTHER ==
[2025-07-25 17:34] LABS: BASOPHILS PERCENT AUTO 0.2 % (0.1-1.3); EOSINOPHILS ABSOLUTE AUTO 0.11 K/uL (0.00-0.40); EOSINOPHILS PERCENT AUTO 1.0 % (0.0-5.4); IMMATURE GRAN ABSOLUTE AUTO 0.04 K/uL (0.00-0.23); IMMATURE GRAN PERCENT AUTO 0.4 % (0.0-0.7); LYMPHOCYTES ABSOLUTE AUTO 1.75 K/uL (0.8-3.3); LYMPHOCYTES PERCENT AUTO 16.4 % (11.4-47.7); MONOCYTES ABSOLUTE AUTO 0.53 K/uL (0.20-0.90); MONOCYTES PERCENT AUTO 5.0 % (3.3-12.6); NEUTROPHILS ABSOLUTE AUTO 8.23 K/uL (1.0-7.6); NEUTROPHILS PERCENT AUTO 77.0 % (40.0-78.1); PLATELET COUNT,PLT 280 K/uL (130-375); RED BLOOD CELL COUNT 5.56 M/uL (4.14-5.76); WHITE BLOOD CELL COUNT,WBC 10.7 K/uL (3.2-11.0)
[2025-07-25 17:35] LABS: BASOPHILS ABSOLUTE AUTO 0.02 K/uL (0.00-0.10)
[2025-07-25] MEDS: Ondansetron 4 MG/2 ML SDV IVPUSH ONE (17:41)
[2025-07-25 17:55] LABS: A/G RATIO 0.9 (1.2-2.2); ALANINE AMINOTRANSFERASE,ALT 32 U/L (12-78); ASPARTATE AMNIOTRANSFERASE,AST 20 U/L (15-37); BILIRUBIN TOTAL 0.6 mg/dL (0.2-1.0); BLOOD UREA NITROGEN,BUN 15 mg/dL (7-18); CARBON DIOXIDE,CO2 32 mmol/L (21-32); CHLORIDE,CL 101 mmol/L (100-108); CREATININE 1.3 mg/dL (0.8-1.3); ESTIMATED GFR 59 mL/min (>60); GLUCOSE RANDOM 103 mg/dL (74-106); POTASSIUM,K 4.1 mmol/L (3.6-5.2); PROTEIN TOTAL,TP 8.3 g/dL (6.4-8.2); SODIUM,NA 138 mmol/L (140-148)
[2025-07-25 18:57] LABS: APPEARANCE,URINE CLEAR (CLEAR); GLUCOSE,URINE NEGATIVE (NEGATIVE); OCCULT BLOOD,URINE NEGATIVE (NEGATIVE)
[2025-07-25 19:11] LABS: SQUAMOUS EPITHELIAL CELLS,UR FEW /HPF; UROTHELIAL CELLS,URINE NOT SEEN /HPF
[2025-07-25 19:12] VITALS: BP 151/89; PULSE 86
== END 2025-07-25 19:44 | disposition home or self-care (01) ==
LOC: JP.ED 15:17
DX: K52.9 Noninfective gastroenteritis and colitis, unspecified (principal); E78.00 Pure hypercholesterolemia, unspecified; I10 Essential (primary) hypertension; K21.9 Gastro-esophageal reflux disease without esophagitis; Z87.891 Personal history of nicotine dependence; Z91.041 Radiographic dye allergy status; Z88.5 Allergy status to narcotic agent; Z88.1 Allergy status to other antibiotic agents; Z79.51 Long term (current) use of inhaled steroids; Z79.899 Other long term (current) drug therapy
CPT/HCPCS: 36415; 80053; 81001; 83605; 85025; 96361; 96374; 99284; J2405; J7030